=== PATIENT | male | born 1980 | race Caucasian/White ===

== ENCOUNTER 2019-10-03 03:15 | Emergency (ER) | payer OTHER ==
[~2019-10-03] VITALS: Ht 193 cm; Wt 181.4 kg
[2019-10-03] MEDS ORDERED: ALBU90OI INH (05:38)
[2019-10-03] MEDS ORDERED: Prednisone20 MG PO (05:38)
[2019-10-03] MEDS ORDERED: Zithromax250 MG PO (05:38)
== END 2019-10-03 06:09 | disposition home or self-care (01) ==
LOC: ER 03:15
DX: J18.9 Pneumonia, unspecified organism (principal); J98.01 Acute bronchospasm; F17.210 Nicotine dependence, cigarettes, uncomplicated
CPT/HCPCS: 71046; 94640; 99283-25; J7512

== ENCOUNTER → 2019-11-15 | Outpatient (CLI) | payer OTHER ==
[~2019-11-15] MED LIST: ALBU90OI INH; Prednisone20 MG PO; Zithromax250 MG PO
[2019-11-15 14:10] LABS: BASOPHILS ABSOLUTE AUTO 0.06 K/mm3 (0.00-0.23); BASOPHILS PERCENT AUTO 1 % (0-2); EOSINOPHILS ABSOLUTE AUTO 0.43 K/mm3 (0.00-0.68); EOSINOPHILS PERCENT AUTO 5 % (0-6); Hemoglobin 15.1 g/dL (13.5-17.5); IMMATURE GRAN ABSOLUTE AUTO 0.04 K/mm3 (0.00-0.10); IMMATURE GRAN PERCENT AUTO 0 % (0-1); LYMPHOCYTES ABSOLUTE AUTO 2.53 K/mm3 (0.84-5.20); LYMPHOCYTES PERCENT AUTO 26 % (21-46); MONOCYTES ABSOLUTE AUTO 0.65 K/mm3 (0.16-1.47); MONOCYTES PERCENT AUTO 7 % (4-13); Mean Corpuscular HGB 31.8 pg (26.0-34.0); Mean Corpuscular HGB Conc 34.3 g/dL (31.5-36.5); Mean Corpuscular Volume 93 fL (80-100); Mean Platelet Volume 8.8 fL (9.1-12.4); NEUTROPHILS ABSOLUTE AUTO 5.87 K/mm3 (1.96-9.15); NEUTROPHILS PERCENT AUTO 61 % (41-73); Platelet Count 462 K/mm3 (150-400); RDW Standard Deviation 40.9 fL (35.1-46.3); Red Blood Cell Count 4.75 M/mm3 (4.30-5.90); White Blood Cell Count 9.58 K/mm3 (4.00-11.30)
[2019-11-15 14:33] LABS: Alanine Aminotransfer (ALT/SGP 34 U/L (12-78); Albumin, Blood 3.5 g/dL (3.4-5.0); Albumin/Globulin Ratio 0.8 (0.8-1.8); Alk Phos 115 U/L (40-126); Anion Gap 8 mmol/L (6-16); Aspartate Aminotrans (AST/SGOT 18 U/L (12-37); Bilirubin, Total 0.4 mg/dL (0.1-1.0); Blood Urea Nitrogen 6 mg/dL (8-24); Bun/Creatinine Ratio 9.4 (12.0-20.0); CO2, Blood 28 mmol/L (21-32); Calcium, Blood 9.1 mg/dL (8.5-10.1); Chloride, Blood 100 mmol/L (98-108); Creatinine, Blood 0.64 mg/dL (0.60-1.20); Globulin, Blood 4.4 g/dL (2.2-4.0); Glomerular Filtration Rate >60 (60-); Glucose, Blood 87 mg/dL (70-99); Sodium, Blood 136 mmol/L (136-145); Thyroid Stimulating Hormone 4.673 uIU/mL (0.360-4.800); Total Protein, Blood 7.9 g/dL (6.4-8.2)
== END | disposition home or self-care (01) ==
LOC: LAB SHORT 14:05 → LAB EV 14:05
PROVIDERS: Physician Assistant Medical
DX: E66.01 Morbid (severe) obesity due to excess calories (principal); R53.83 Other fatigue; R60.0 Localized edema
CPT/HCPCS: 80053; 83036; 84443; 85025

== ENCOUNTER → 2020-05-28 | Outpatient (CLI) | payer OTHER ==
[2020-05-28 13:30] LABS: BASOPHILS ABSOLUTE AUTO 0.07 K/mm3 (0.00-0.23); BASOPHILS PERCENT AUTO 1 % (0-2); EOSINOPHILS ABSOLUTE AUTO 0.41 K/mm3 (0.00-0.68); EOSINOPHILS PERCENT AUTO 5 % (0-6); Hematocrit 44.3 % (37.0-53.0); Hemoglobin 15.5 g/dL (13.5-17.5); IMMATURE GRAN ABSOLUTE AUTO 0.03 K/mm3 (0.00-0.10); IMMATURE GRAN PERCENT AUTO 0 % (0-1); LYMPHOCYTES PERCENT AUTO 25 % (21-46); MONOCYTES ABSOLUTE AUTO 0.73 K/mm3 (0.16-1.47); MONOCYTES PERCENT AUTO 9 % (4-13); Mean Corpuscular HGB 32.8 pg (26.0-34.0); Mean Corpuscular Volume 94 fL (80-100); Mean Platelet Volume 8.7 fL (9.1-12.4); NEUTROPHILS ABSOLUTE AUTO 5.14 K/mm3 (1.96-9.15); NEUTROPHILS PERCENT AUTO 61 % (41-73); Platelet Count 356 K/mm3 (150-400); RDW Standard Deviation 41.8 fL (35.1-46.3); Red Blood Cell Count 4.72 M/mm3 (4.30-5.90); White Blood Cell Count 8.48 K/mm3 (4.00-11.30)
[2020-05-28 13:41] LABS: Alanine Aminotransfer (ALT/SGP 62 U/L (12-78); Albumin, Blood 3.8 g/dL (3.4-5.0); Albumin/Globulin Ratio 0.9 (0.8-1.8); Alk Phos 106 U/L (40-126); Anion Gap 6 mmol/L (6-16); Aspartate Aminotrans (AST/SGOT 34 U/L (12-37); Bilirubin, Total 0.5 mg/dL (0.1-1.0); Blood Urea Nitrogen 11 mg/dL (8-24); Bun/Creatinine Ratio 16.2 (12.0-20.0); CO2, Blood 29 mmol/L (21-32); Calcium, Blood 9.4 mg/dL (8.5-10.1); Chloride, Blood 100 mmol/L (98-108); Creatinine, Blood 0.68 mg/dL (0.60-1.20); Globulin, Blood 4.4 g/dL (2.2-4.0); Glomerular Filtration Rate >60 (60-); Glucose, Blood 101 mg/dL (70-99); Potassium, Blood 3.9 mmol/L (3.5-5.5); Sodium, Blood 135 mmol/L (136-145); Total Protein, Blood 8.2 g/dL (6.4-8.2)
== END ==
LOC: LAB SHORT 13:25 → LAB EV 13:25
PROVIDERS: Emergency Medicine
DX: S81.802A Unspecified open wound, left lower leg, initial encounter (principal)
CPT/HCPCS: 80053; 85025; 87070; 87075; 87077; 87147; 87186; 87205

== ENCOUNTER 2020-09-10 00:13 | Day surgery (SDC) | payer OTHER | END 2020-09-10 22:51 | disposition home or self-care (01) | LOC: WOUND 00:13 | DX: I87.312 Chronic venous hypertension (idiopathic) with ulcer of left lower extremity (principal); L97.822 Non-pressure chronic ulcer of other part of left lower leg with fat layer exposed; I96 Gangrene, not elsewhere classified; I87.2 Venous insufficiency (chronic) (peripheral); G62.1 Alcoholic polyneuropathy; F17.210 Nicotine dependence, cigarettes, uncomplicated; E66.01 Morbid (severe) obesity due to excess calories; Z68.42 Body mass index [BMI] 45.0-49.9, adult; Z79.899 Other long term (current) drug therapy | CPT/HCPCS: G0463 ==

== ENCOUNTER 2020-09-13 00:27 | Day surgery (SDC) | payer OTHER | END 2020-09-13 23:05 | disposition home or self-care (01) | LOC: WOUND 00:27 | DX: I87.312 Chronic venous hypertension (idiopathic) with ulcer of left lower extremity (principal); L97.822 Non-pressure chronic ulcer of other part of left lower leg with fat layer exposed; I96 Gangrene, not elsewhere classified; G62.9 Polyneuropathy, unspecified; Z79.899 Other long term (current) drug therapy ==

== ENCOUNTER 2020-09-17 00:18 | Day surgery (SDC) | payer OTHER | END 2020-09-17 23:46 | disposition home or self-care (01) | LOC: WOUND 00:18 | DX: I87.2 Venous insufficiency (chronic) (peripheral) (principal); I87.312 Chronic venous hypertension (idiopathic) with ulcer of left lower extremity; I73.9 Peripheral vascular disease, unspecified; L97.821 Non-pressure chronic ulcer of other part of left lower leg limited to breakdown of skin; Z79.899 Other long term (current) drug therapy ==

== ENCOUNTER 2020-09-24 00:21 | Day surgery (SDC) | payer OTHER | END 2020-09-24 23:04 | disposition home or self-care (01) | LOC: WOUND 00:21 | DX: I96 Gangrene, not elsewhere classified (principal); L97.822 Non-pressure chronic ulcer of other part of left lower leg with fat layer exposed; I87.312 Chronic venous hypertension (idiopathic) with ulcer of left lower extremity; I87.2 Venous insufficiency (chronic) (peripheral); G62.9 Polyneuropathy, unspecified; Z79.899 Other long term (current) drug therapy ==

== ENCOUNTER 2020-10-01 00:40 | Day surgery (SDC) | payer OTHER | END 2020-10-01 22:52 | disposition home or self-care (01) | LOC: WOUND 00:40 | DX: I87.312 Chronic venous hypertension (idiopathic) with ulcer of left lower extremity (principal); L97.821 Non-pressure chronic ulcer of other part of left lower leg limited to breakdown of skin; L97.822 Non-pressure chronic ulcer of other part of left lower leg with fat layer exposed; I87.2 Venous insufficiency (chronic) (peripheral); I73.9 Peripheral vascular disease, unspecified ==

== ENCOUNTER 2020-10-08 00:33 | Day surgery (SDC) | payer OTHER | END 2020-10-08 23:12 | disposition home or self-care (01) | LOC: WOUND 00:33 | DX: I96 Gangrene, not elsewhere classified (principal); L97.822 Non-pressure chronic ulcer of other part of left lower leg with fat layer exposed; I87.2 Venous insufficiency (chronic) (peripheral); G62.9 Polyneuropathy, unspecified; Z79.899 Other long term (current) drug therapy | CPT/HCPCS: A9270 ==

== ENCOUNTER 2020-10-10 00:28 | Day surgery (SDC) | payer OTHER | END 2020-10-10 22:48 | disposition home or self-care (01) | LOC: WOUND 00:28 | DX: L97.821 Non-pressure chronic ulcer of other part of left lower leg limited to breakdown of skin (principal); R60.9 Edema, unspecified; I87.2 Venous insufficiency (chronic) (peripheral) ==

== ENCOUNTER 2020-10-15 00:21 | Day surgery (SDC) | payer OTHER | END 2020-10-15 22:43 | disposition home or self-care (01) | LOC: WOUND 00:21 | DX: L97.821 Non-pressure chronic ulcer of other part of left lower leg limited to breakdown of skin (principal); I87.2 Venous insufficiency (chronic) (peripheral); G62.9 Polyneuropathy, unspecified; I73.9 Peripheral vascular disease, unspecified; Z79.899 Other long term (current) drug therapy | CPT/HCPCS: A9270; G0463 ==

== ENCOUNTER 2021-12-02 09:04 | Emergency (ER) | payer SELFPAY ==
[~2021-12-02] VITALS: Ht 193 cm; Wt 192.8 kg
[2021-12-02 09:54] LABS: BASOPHILS ABSOLUTE AUTO 0.06 K/mm3 (0.00-0.23); BASOPHILS PERCENT AUTO 1 % (0-2); EOSINOPHILS ABSOLUTE AUTO 0.38 K/mm3 (0.00-0.68); EOSINOPHILS PERCENT AUTO 5 % (0-6); Hematocrit 44.6 % (37.0-53.0); Hemoglobin 14.8 g/dL (13.5-17.5); IMMATURE GRAN ABSOLUTE AUTO 0.05 K/mm3 (0.00-0.10); IMMATURE GRAN PERCENT AUTO 1 % (0-1); LYMPHOCYTES ABSOLUTE AUTO 1.93 K/mm3 (0.84-5.20); LYMPHOCYTES PERCENT AUTO 25 % (21-46); MONOCYTES ABSOLUTE AUTO 0.69 K/mm3 (0.16-1.47); MONOCYTES PERCENT AUTO 9 % (4-13); Mean Corpuscular HGB 31.6 pg (26.0-34.0); Mean Corpuscular HGB Conc 33.2 g/dL (31.5-36.5); Mean Corpuscular Volume 95 fL (80-100); Mean Platelet Volume 8.8 fL (9.1-12.4); NEUTROPHILS ABSOLUTE AUTO 4.76 K/mm3 (1.96-9.15); NEUTROPHILS PERCENT AUTO 61 % (41-73); Platelet Count 373 K/mm3 (150-400); RDW Coefficient Variation 12.7 % (11.7-14.2); RDW Standard Deviation 43.8 fL (35.1-46.3); Red Blood Cell Count 4.69 M/mm3 (4.30-5.90); White Blood Cell Count 7.87 K/mm3 (4.00-11.30)
[2021-12-02 10:14] LABS: Alanine Aminotransfer (ALT/SGP 66 U/L (12-78); Albumin, Blood 3.2 g/dL (3.4-5.0); Albumin/Globulin Ratio 0.6 (0.8-1.8); Alk Phos 135 U/L (50-136); Anion Gap 7 mmol/L (6-16); Aspartate Aminotrans (AST/SGOT 37 U/L (12-37); Bilirubin, Total 0.6 mg/dL (0.1-1.0); Blood Urea Nitrogen 6 mg/dL (8-24); Bun/Creatinine Ratio 12.2 (12.0-20.0); CO2, Blood 29 mmol/L (21-32); Calcium, Blood 9.3 mg/dL (8.5-10.1); Chloride, Blood 98 mmol/L (98-108); Creatinine, Blood 0.49 mg/dL (0.60-1.20); Globulin, Blood 5.3 g/dL (2.2-4.0); Glomerular Filtration Rate >60 (60-); Glucose, Blood 101 mg/dL (70-99); Potassium, Blood 4.2 mmol/L (3.5-5.5); Sodium, Blood 134 mmol/L (136-145); Total Protein, Blood 8.5 g/dL (6.4-8.2)
[2021-12-02] MEDS ORDERED: Prinivil10 MG PO (11:36)
== END 2021-12-02 14:04 | disposition home or self-care (01) ==
LOC: ER 09:04
PROVIDERS: Family Medicine
DX: L97.429 Non-pressure chronic ulcer of left heel and midfoot with unspecified severity (principal); I10 Essential (primary) hypertension; Z79.899 Other long term (current) drug therapy; F17.210 Nicotine dependence, cigarettes, uncomplicated
CPT/HCPCS: 36415; 73620; 80053; 83036; 85025; 93926; A9270

== ENCOUNTER 2021-12-30 00:48 | Day surgery (SDC) | payer OTHER ==
[~2021-12-30 00:48] MED LIST changes: +Prinivil10 MG PO
== END 2021-12-30 23:55 | disposition home or self-care (01) ==
LOC: WOUND 00:48
DX: S81.802A Unspecified open wound, left lower leg, initial encounter (principal); S91.302A Unspecified open wound, left foot, initial encounter; R60.9 Edema, unspecified; E66.01 Morbid (severe) obesity due to excess calories; F17.200 Nicotine dependence, unspecified, uncomplicated; I73.9 Peripheral vascular disease, unspecified; I87.2 Venous insufficiency (chronic) (peripheral); F10.10 Alcohol abuse, uncomplicated
CPT/HCPCS: G0463

== ENCOUNTER 2022-01-06 08:00 | Day surgery (SDC) | payer OTHER ==
[2022-02-17] MEDS ORDERED: ALBU90OI INH (11:13)
[2022-02-17] MEDS ORDERED: ASPI81CH PO (11:13)
[2022-02-17] MEDS ORDERED: SULTRIDS PO (11:14)
[2022-02-17] MEDS ORDERED: Crestor40 MG PO (11:14)
== END 2022-01-06 23:59 | disposition home or self-care (01) ==
LOC: WOUND 08:00
DX: L97.522 Non-pressure chronic ulcer of other part of left foot with fat layer exposed (principal); I73.9 Peripheral vascular disease, unspecified; I87.2 Venous insufficiency (chronic) (peripheral); F10.10 Alcohol abuse, uncomplicated; E66.01 Morbid (severe) obesity due to excess calories; R60.9 Edema, unspecified; F17.200 Nicotine dependence, unspecified, uncomplicated; Z68.43 Body mass index [BMI] 50.0-59.9, adult
CPT/HCPCS: G0463

== ENCOUNTER 2022-01-13 02:00 | Day surgery (SDC) | payer OTHER | END 2022-01-13 22:52 | disposition home or self-care (01) | LOC: WOUND 02:00 | DX: L97.522 Non-pressure chronic ulcer of other part of left foot with fat layer exposed (principal); I73.9 Peripheral vascular disease, unspecified; I87.2 Venous insufficiency (chronic) (peripheral); F17.210 Nicotine dependence, cigarettes, uncomplicated; E66.01 Morbid (severe) obesity due to excess calories; Z68.43 Body mass index [BMI] 50.0-59.9, adult; F10.10 Alcohol abuse, uncomplicated | CPT/HCPCS: A9270; G0463 ==

== ENCOUNTER 2022-01-27 01:34 | Day surgery (SDC) | payer OTHER | END 2022-01-27 22:57 | disposition home or self-care (01) | LOC: WOUND 01:34 | DX: L97.522 Non-pressure chronic ulcer of other part of left foot with fat layer exposed (principal); I73.9 Peripheral vascular disease, unspecified; R60.9 Edema, unspecified; I87.2 Venous insufficiency (chronic) (peripheral); F17.210 Nicotine dependence, cigarettes, uncomplicated; E66.01 Morbid (severe) obesity due to excess calories; Z68.43 Body mass index [BMI] 50.0-59.9, adult; F10.10 Alcohol abuse, uncomplicated | CPT/HCPCS: 99406; A9270; G0463 ==

== ENCOUNTER 2022-02-10 01:26 | Day surgery (SDC) | payer OTHER | END 2022-02-10 22:47 | disposition home or self-care (01) | LOC: WOUND 01:26 | DX: L97.522 Non-pressure chronic ulcer of other part of left foot with fat layer exposed (principal); L89.899 Pressure ulcer of other site, unspecified stage; R60.9 Edema, unspecified; E66.01 Morbid (severe) obesity due to excess calories; I87.2 Venous insufficiency (chronic) (peripheral); F17.200 Nicotine dependence, unspecified, uncomplicated; F10.10 Alcohol abuse, uncomplicated; Z68.43 Body mass index [BMI] 50.0-59.9, adult | CPT/HCPCS: 99406; A9270; G0463 ==

== ENCOUNTER → 2022-03-05 | Day surgery (SDC) | payer OTHER ==
[~2022-03-05] MED LIST changes: +ASPI81CH PO; +Crestor40 MG PO; +SULTRIDS PO
== END ==
LOC: WOUND 01:46
DX: L97.522 Non-pressure chronic ulcer of other part of left foot with fat layer exposed (principal); E66.01 Morbid (severe) obesity due to excess calories; Z68.43 Body mass index [BMI] 50.0-59.9, adult; R60.9 Edema, unspecified; F17.200 Nicotine dependence, unspecified, uncomplicated; I87.2 Venous insufficiency (chronic) (peripheral); F10.10 Alcohol abuse, uncomplicated
CPT/HCPCS: A9270; G0463

== ENCOUNTER 2022-03-12 04:36 | Day surgery (SDC) | payer OTHER | END 2022-03-12 23:17 | disposition home or self-care (01) | LOC: WOUND 04:36 | DX: L97.522 Non-pressure chronic ulcer of other part of left foot with fat layer exposed (principal); L89.899 Pressure ulcer of other site, unspecified stage; I87.2 Venous insufficiency (chronic) (peripheral); R60.9 Edema, unspecified; E66.01 Morbid (severe) obesity due to excess calories; Z68.43 Body mass index [BMI] 50.0-59.9, adult | CPT/HCPCS: 99406; A9270; G0463 ==

== ENCOUNTER 2022-03-19 01:16 | Day surgery (SDC) | payer OTHER | END 2022-03-19 22:49 | disposition home or self-care (01) | LOC: WOUND 01:16 | DX: L97.522 Non-pressure chronic ulcer of other part of left foot with fat layer exposed (principal); L97.812 Non-pressure chronic ulcer of other part of right lower leg with fat layer exposed; S81.802A Unspecified open wound, left lower leg, initial encounter; X58.XXXD Exposure to other specified factors, subsequent encounter; E66.01 Morbid (severe) obesity due to excess calories; R60.9 Edema, unspecified; F17.200 Nicotine dependence, unspecified, uncomplicated; I73.9 Peripheral vascular disease, unspecified; I87.2 Venous insufficiency (chronic) (peripheral); F10.10 Alcohol abuse, uncomplicated | CPT/HCPCS: 99406; A9270 ==

== ENCOUNTER 2022-03-21 01:51 | Day surgery (SDC) | payer OTHER | END 2022-03-21 23:04 | disposition home or self-care (01) | LOC: WOUND 01:51 | DX: S81.802A Unspecified open wound, left lower leg, initial encounter (principal); R60.9 Edema, unspecified; E66.01 Morbid (severe) obesity due to excess calories; F17.200 Nicotine dependence, unspecified, uncomplicated; I87.2 Venous insufficiency (chronic) (peripheral); F10.10 Alcohol abuse, uncomplicated | CPT/HCPCS: 99406 ==

== ENCOUNTER 2022-03-25 04:41 | Day surgery (SDC) | payer OTHER | END 2022-03-25 22:58 | disposition home or self-care (01) | LOC: WOUND 04:41 | DX: L97.812 Non-pressure chronic ulcer of other part of right lower leg with fat layer exposed (principal); L97.525 Non-pressure chronic ulcer of other part of left foot with muscle involvement without evidence of necrosis; R60.9 Edema, unspecified; E66.01 Morbid (severe) obesity due to excess calories; F17.200 Nicotine dependence, unspecified, uncomplicated; I87.2 Venous insufficiency (chronic) (peripheral); F10.10 Alcohol abuse, uncomplicated; Z68.43 Body mass index [BMI] 50.0-59.9, adult | CPT/HCPCS: 99406; A9270 ==

== ENCOUNTER 2022-04-01 01:18 | Day surgery (SDC) | payer OTHER | END 2022-04-01 23:00 | disposition home or self-care (01) | LOC: WOUND 01:18 | DX: L97.812 Non-pressure chronic ulcer of other part of right lower leg with fat layer exposed (principal); L97.525 Non-pressure chronic ulcer of other part of left foot with muscle involvement without evidence of necrosis; L97.522 Non-pressure chronic ulcer of other part of left foot with fat layer exposed; I73.9 Peripheral vascular disease, unspecified; I87.2 Venous insufficiency (chronic) (peripheral); F10.10 Alcohol abuse, uncomplicated; F17.200 Nicotine dependence, unspecified, uncomplicated; E66.01 Morbid (severe) obesity due to excess calories; Z68.43 Body mass index [BMI] 50.0-59.9, adult | CPT/HCPCS: 99406; A9270 ==

== ENCOUNTER 2022-04-04 01:03 | Day surgery (SDC) | payer OTHER | END 2022-04-04 23:13 | disposition home or self-care (01) | LOC: WOUND 01:03 | DX: S91.302A Unspecified open wound, left foot, initial encounter (principal); S81.802D Unspecified open wound, left lower leg, subsequent encounter; R60.9 Edema, unspecified; E66.01 Morbid (severe) obesity due to excess calories; F17.200 Nicotine dependence, unspecified, uncomplicated; F10.10 Alcohol abuse, uncomplicated; I87.2 Venous insufficiency (chronic) (peripheral) | CPT/HCPCS: 99406 ==

== ENCOUNTER 2022-04-08 05:04 | Day surgery (SDC) | payer OTHER | END 2022-04-08 23:56 | disposition home or self-care (01) | LOC: WOUND 05:04 | DX: I87.311 Chronic venous hypertension (idiopathic) with ulcer of right lower extremity (principal); L97.812 Non-pressure chronic ulcer of other part of right lower leg with fat layer exposed; L89.624 Pressure ulcer of left heel, stage 4; L97.522 Non-pressure chronic ulcer of other part of left foot with fat layer exposed; R60.9 Edema, unspecified; E66.01 Morbid (severe) obesity due to excess calories; F17.200 Nicotine dependence, unspecified, uncomplicated; I87.2 Venous insufficiency (chronic) (peripheral); F10.10 Alcohol abuse, uncomplicated; Z68.43 Body mass index [BMI] 50.0-59.9, adult | CPT/HCPCS: 87070; 87075; 87077; 87147; 87186; 87205; A9270; G0463 ==

== ENCOUNTER 2022-04-09 14:35 | Day surgery (SDC) | payer OTHER | END 2022-04-09 23:50 | LOC: WOUND 14:35 | DX: L89.624 Pressure ulcer of left heel, stage 4 (principal); L97.522 Non-pressure chronic ulcer of other part of left foot with fat layer exposed; I87.311 Chronic venous hypertension (idiopathic) with ulcer of right lower extremity; R60.9 Edema, unspecified; E66.01 Morbid (severe) obesity due to excess calories; F17.200 Nicotine dependence, unspecified, uncomplicated; I73.9 Peripheral vascular disease, unspecified; I87.2 Venous insufficiency (chronic) (peripheral); F10.10 Alcohol abuse, uncomplicated | CPT/HCPCS: 99406 ==

== ENCOUNTER 2022-04-15 03:19 | Day surgery (SDC) | payer OTHER | END 2022-04-18 23:37 | disposition home or self-care (01) | LOC: WOUND 03:19 | DX: I87.311 Chronic venous hypertension (idiopathic) with ulcer of right lower extremity (principal); L97.812 Non-pressure chronic ulcer of other part of right lower leg with fat layer exposed; L97.525 Non-pressure chronic ulcer of other part of left foot with muscle involvement without evidence of necrosis; E66.01 Morbid (severe) obesity due to excess calories; F17.200 Nicotine dependence, unspecified, uncomplicated; I73.9 Peripheral vascular disease, unspecified; I87.2 Venous insufficiency (chronic) (peripheral); F10.10 Alcohol abuse, uncomplicated; B95.61 Methicillin susceptible Staphylococcus aureus infection as the cause of diseases classified elsewhere; B95.4 Other streptococcus as the cause of diseases classified elsewhere; Z68.43 Body mass index [BMI] 50.0-59.9, adult | CPT/HCPCS: 99406; A9270 ==

== ENCOUNTER 2022-04-22 02:49 | Day surgery (SDC) | payer OTHER | END 2022-04-22 22:50 | disposition home or self-care (01) | LOC: WOUND 02:49 | DX: L89.624 Pressure ulcer of left heel, stage 4 (principal); L97.522 Non-pressure chronic ulcer of other part of left foot with fat layer exposed; I87.311 Chronic venous hypertension (idiopathic) with ulcer of right lower extremity; R60.9 Edema, unspecified; E66.01 Morbid (severe) obesity due to excess calories; F17.200 Nicotine dependence, unspecified, uncomplicated; I73.9 Peripheral vascular disease, unspecified; I87.2 Venous insufficiency (chronic) (peripheral); F10.10 Alcohol abuse, uncomplicated | CPT/HCPCS: 99406 ==

== ENCOUNTER 2022-04-29 01:13 | Day surgery (SDC) | payer OTHER | END 2022-04-30 00:06 | disposition home or self-care (01) | LOC: WOUND 01:13 | DX: L97.522 Non-pressure chronic ulcer of other part of left foot with fat layer exposed (principal); L89.624 Pressure ulcer of left heel, stage 4; I87.311 Chronic venous hypertension (idiopathic) with ulcer of right lower extremity; E66.01 Morbid (severe) obesity due to excess calories; F17.200 Nicotine dependence, unspecified, uncomplicated; I87.2 Venous insufficiency (chronic) (peripheral); F10.10 Alcohol abuse, uncomplicated; Z68.43 Body mass index [BMI] 50.0-59.9, adult | CPT/HCPCS: A9270; G0463 ==

== ENCOUNTER 2022-05-06 01:03 | Day surgery (SDC) | payer OTHER | END 2022-05-06 12:59 | disposition home or self-care (01) | LOC: WOUND 01:03 | DX: L89.624 Pressure ulcer of left heel, stage 4 (principal); L97.525 Non-pressure chronic ulcer of other part of left foot with muscle involvement without evidence of necrosis; I87.311 Chronic venous hypertension (idiopathic) with ulcer of right lower extremity; R60.9 Edema, unspecified; E66.01 Morbid (severe) obesity due to excess calories; F17.200 Nicotine dependence, unspecified, uncomplicated; I73.9 Peripheral vascular disease, unspecified; I87.2 Venous insufficiency (chronic) (peripheral); F10.10 Alcohol abuse, uncomplicated | CPT/HCPCS: A9270; G0463 ==

== ENCOUNTER 2022-05-20 04:17 | Day surgery (SDC) | payer OTHER | END 2022-05-20 23:26 | disposition home or self-care (01) | LOC: WOUND 04:17 | PROC: 0H5NXZZ Destruction of Left Foot Skin, External Approach (ICD-10-PCS; principal; 2022-05-20) | DX: I70.25 Atherosclerosis of native arteries of other extremities with ulceration (principal); L98.492 Non-pressure chronic ulcer of skin of other sites with fat layer exposed; I87.311 Chronic venous hypertension (idiopathic) with ulcer of right lower extremity; L89.624 Pressure ulcer of left heel, stage 4; E66.01 Morbid (severe) obesity due to excess calories; F17.200 Nicotine dependence, unspecified, uncomplicated; I87.2 Venous insufficiency (chronic) (peripheral); F10.10 Alcohol abuse, uncomplicated; Z68.43 Body mass index [BMI] 50.0-59.9, adult; Y90.9 Presence of alcohol in blood, level not specified | CPT/HCPCS: A9270 ==

== ENCOUNTER 2022-06-03 01:52 | Day surgery (SDC) | payer OTHER | END 2022-06-03 23:55 | disposition home or self-care (01) | LOC: WOUND 01:52 | DX: I87.311 Chronic venous hypertension (idiopathic) with ulcer of right lower extremity (principal); L97.425 Non-pressure chronic ulcer of left heel and midfoot with muscle involvement without evidence of necrosis; L97.522 Non-pressure chronic ulcer of other part of left foot with fat layer exposed; L89.624 Pressure ulcer of left heel, stage 4; R60.9 Edema, unspecified; E66.01 Morbid (severe) obesity due to excess calories; F17.200 Nicotine dependence, unspecified, uncomplicated; I73.9 Peripheral vascular disease, unspecified; I87.2 Venous insufficiency (chronic) (peripheral); F10.10 Alcohol abuse, uncomplicated | CPT/HCPCS: A9270 ==

== ENCOUNTER 2022-07-01 02:30 | Day surgery (SDC) | payer OTHER | END 2022-07-01 22:53 | disposition home or self-care (01) | LOC: WOUND 02:30 | DX: Z09 Encounter for follow-up examination after completed treatment for conditions other than malignant neoplasm (principal); E66.01 Morbid (severe) obesity due to excess calories; F10.10 Alcohol abuse, uncomplicated; F17.200 Nicotine dependence, unspecified, uncomplicated | CPT/HCPCS: G0463 ==

== ENCOUNTER 2022-09-03 05:57 | Day surgery (SDC) | payer OTHER | END 2022-09-03 23:06 | disposition home or self-care (01) | LOC: WOUND 05:57 | DX: L08.9 Local infection of the skin and subcutaneous tissue, unspecified (principal); E66.01 Morbid (severe) obesity due to excess calories; F17.200 Nicotine dependence, unspecified, uncomplicated; I73.9 Peripheral vascular disease, unspecified; I87.2 Venous insufficiency (chronic) (peripheral); F10.10 Alcohol abuse, uncomplicated; L97.222 Non-pressure chronic ulcer of left calf with fat layer exposed; L97.812 Non-pressure chronic ulcer of other part of right lower leg with fat layer exposed | CPT/HCPCS: 99406; G0463 ==

== ENCOUNTER 2022-09-10 02:00 | Day surgery (SDC) | payer OTHER | END 2022-09-10 22:56 | disposition home or self-care (01) | LOC: WOUND 02:00 | DX: L03.116 Cellulitis of left lower limb (principal); E66.01 Morbid (severe) obesity due to excess calories; F17.200 Nicotine dependence, unspecified, uncomplicated; I73.9 Peripheral vascular disease, unspecified; I87.2 Venous insufficiency (chronic) (peripheral); F10.10 Alcohol abuse, uncomplicated; L97.522 Non-pressure chronic ulcer of other part of left foot with fat layer exposed | CPT/HCPCS: 99406; G0463 ==

== ENCOUNTER 2022-09-17 01:13 | Day surgery (SDC) | payer OTHER | END 2022-09-18 00:02 | disposition home or self-care (01) | LOC: WOUND 01:13 | DX: L03.116 Cellulitis of left lower limb (principal); L97.522 Non-pressure chronic ulcer of other part of left foot with fat layer exposed; E66.01 Morbid (severe) obesity due to excess calories; I73.9 Peripheral vascular disease, unspecified; I87.2 Venous insufficiency (chronic) (peripheral); F10.10 Alcohol abuse, uncomplicated | CPT/HCPCS: G0463 ==

== ENCOUNTER 2022-11-05 17:48 | Inpatient (IN) | payer OTHER ==
[~2022-11-05] VITALS: Ht 193 cm; Wt 204.8 kg
[~2022-11-05 17:48] MED LIST changes: +ANUSOL-HC30 G1 PR; +FURO40 PO; +Prinivil10 MG
[2022-11-05 18:34] LABS: BASOPHILS ABSOLUTE AUTO 0.05 K/mm3 (0.00-0.23); BASOPHILS PERCENT AUTO 0 % (0-2); EOSINOPHILS ABSOLUTE AUTO 0.59 K/mm3 (0.00-0.68); EOSINOPHILS PERCENT AUTO 3 % (0-6); Hematocrit 38.5 % (37.0-53.0); Hemoglobin 13.4 g/dL (13.5-17.5); IMMATURE GRAN ABSOLUTE AUTO 0.12 K/mm3 (0.00-0.10); IMMATURE GRAN PERCENT AUTO 1 % (0-1); LYMPHOCYTES ABSOLUTE AUTO 0.51 K/mm3 (0.84-5.20); LYMPHOCYTES PERCENT AUTO 3 % (21-46); MONOCYTES ABSOLUTE AUTO 0.39 K/mm3 (0.16-1.47); MONOCYTES PERCENT AUTO 2 % (4-13); Mean Corpuscular HGB Conc 34.8 g/dL (31.5-36.5); Mean Corpuscular Volume 89 fL (80-100); Mean Platelet Volume 9.1 fL (9.1-12.4); NEUTROPHILS PERCENT AUTO 90 % (41-73); Platelet Count 341 K/mm3 (150-400); RDW Coefficient Variation 13.2 % (11.7-14.2); RDW Standard Deviation 43.7 fL (35.1-46.3); Red Blood Cell Count 4.32 M/mm3 (4.30-5.90); White Blood Cell Count 17.16 K/mm3 (4.00-11.30)
[2022-11-05 18:50] LABS: Albumin, Blood 2.7 g/dL (3.4-5.0); Albumin/Globulin Ratio 0.6 (0.8-1.8); Bilirubin, Total 6.1 mg/dL (0.1-1.0); Bun/Creatinine Ratio 12.7 (12.0-20.0); Calcium, Blood 8.6 mg/dL (8.5-10.1); Creatinine, Blood 1.42 mg/dL (0.60-1.20); Globulin, Blood 4.3 g/dL (2.2-4.0)
[2022-11-05 21:14] LABS: Bilirubin, Direct 3.7 mg/dL (0.0-0.3); Bilirubin, Indirect 1.8 mg/dL (0.1-0.7); Bilirubin, Total 5.5 mg/dL (0.1-1.0)
[2022-11-05 22:21] LABS: Magnesium, Blood 1.9 mg/dL (1.6-2.4)
[2022-11-05 23:22] LABS: Thyroid Stimulating Hormone 4.45 uIU/mL (0.360-4.800)
[2022-11-05 23:59] LABS: Influenza A, PCR NEGATIVE (NEGATIVE); Influenza B, PCR NEGATIVE (NEGATIVE); Resp Syncytial Virus, PCR NEGATIVE (NEGATIVE); SARS-Cov-2 (COVID-19) PCR, MMC NEGATIVE (NEGATIVE)
--- NOTE | 2022-11-06 00:27 | NUR ---
PT ARRIVED TO UNIT FROM ED AT 2335 VIA [facility]. SELF-TRANSFERRED TO BED. RIGHT FIFTH TOE NOTED TO BE WEEPING SEROSANGUINOUS FLUID FROM BEND OF TOE. DENIED C/O PAIN. PT HAS NEUROPATHY AND IS UNABLE TO FEEL TOES. TELE ORDERED AND WILL BE APPLIED UPON RECEIPT FROM MEDICAL OFFICE REPRESENTATIVE. METRONIDAZOLE STARTED AT 0000. PROVIDED WITH ICE CHIPS. CONSULT FOR GI ORDERED.
[2022-11-06 00:59] LABS: Hematocrit 36.6 % (37.0-53.0); Hemoglobin 12.6 g/dL (13.5-17.5)
[2022-11-06 03:15] LABS: BASOPHILS ABSOLUTE AUTO 0.04 K/mm3 (0.00-0.23); BASOPHILS PERCENT AUTO 0 % (0-2); EOSINOPHILS PERCENT AUTO 6 % (0-6); Hematocrit 36.6 % (37.0-53.0); Hemoglobin 12.7 g/dL (13.5-17.5); IMMATURE GRAN ABSOLUTE AUTO 0.08 K/mm3 (0.00-0.10); IMMATURE GRAN PERCENT AUTO 1 % (0-1); LYMPHOCYTES ABSOLUTE AUTO 0.57 K/mm3 (0.84-5.20); LYMPHOCYTES PERCENT AUTO 4 % (21-46); MONOCYTES PERCENT AUTO 3 % (4-13); Mean Corpuscular HGB 30.6 pg (26.0-34.0); Mean Corpuscular HGB Conc 34.7 g/dL (31.5-36.5); Mean Corpuscular Volume 88 fL (80-100); NEUTROPHILS PERCENT AUTO 87 % (41-73); Platelet Count 311 K/mm3 (150-400); RDW Coefficient Variation 13.3 % (11.7-14.2); RDW Standard Deviation 43.5 fL (35.1-46.3); Red Blood Cell Count 4.15 M/mm3 (4.30-5.90); White Blood Cell Count 15.59 K/mm3 (4.00-11.30)
[2022-11-06 03:49] LABS: Albumin, Blood 2.4 g/dL (3.4-5.0); Albumin/Globulin Ratio 0.5 (0.8-1.8); Bilirubin, Total 4.6 mg/dL (0.1-1.0); Calcium, Blood 8.5 mg/dL (8.5-10.1); Creatinine, Blood 1.41 mg/dL (0.60-1.20); Globulin, Blood 4.4 g/dL (2.2-4.0); Potassium, Blood 3.7 mmol/L (3.5-5.5); Total Protein, Blood 6.8 g/dL (6.4-8.2)
--- NOTE | 2022-11-06 07:19 | NUR ---
PIGGYBACK CLERK SUMMARY: A&Ox4. PLEASANT AND COOPERATIVE WITH CARE. CALLS APPROPRIATELY AND IS ABLE TO COMMUNICATE NEEDS EFFECTIVELY. C/O LOOSE STOOLS BUT HAS NOT NOTED ANY BLOOD IN STOOL. LABS THIS AM; NO CRITICAL VALUES REPORTED. NO C/O PAIN. DID SUFFER WOUND TO RIGHT FIFTH TOE DURING TRANSPORT FROM ED TO MED FLOOR AT SOME POINT. WOUND CARE PROVIDED. NEED PICTURES. TELE SINUS. REPORT TO ONCOMIN GRN.
--- NOTE | 2022-11-06 08:00 | NUR ---
pt sitting up on the side of the bed visitor in room with him, he is a/ox3, pleasant and cooperative with care, follows commands well, seems pretty anxious states he hasn't been told anything yet, he just got to room in the middle of the night, explained a will see him today, lungs are dim t/o, can auscultate air movement in upper alves, but very dim in bases, could be due to body habitus, on r/a at this time, no cough noted, hrr, tele in place running sr per monitor, see strip, looks like 2+ edema to b/l legs but unable to tell if just size, iv site is clear and patent, reports no void yet this am, was told loose stools, skin has a wound to right toe with dressing in place, skin is dark on both legs, blisters to bottom of left foot, mapraveen, up indep in room, jesse, call light in reach.
[2022-11-06 11:00] LABS: International Normalized Ratio 1.14; Prothrombin Time Results 11.9 Sec (9.7-11.5)
[2022-11-06 11:03] LABS: Albumin, Blood 2.4 g/dL (3.4-5.0); Albumin/Globulin Ratio 0.5 (0.8-1.8); Bilirubin, Direct 2.3 mg/dL (0.0-0.3); Bilirubin, Total 2.9 mg/dL (0.1-1.0); Bun/Creatinine Ratio 22.2 (12.0-20.0); Calcium, Blood 8.4 mg/dL (8.5-10.1); Creatinine, Blood 0.95 mg/dL (0.60-1.20); Globulin, Blood 4.6 g/dL (2.2-4.0); Potassium, Blood 3.4 mmol/L (3.5-5.5)
--- NOTE | 2022-11-06 18:35 | NUR ---
pt states he's feeling a lot better, waiting on GI consult, called he will be here within an hr. informed pt. no further changes. call light in reach.
--- NOTE | 2022-11-07 00:17 | NUR ---
GI TO PT BESIDE. DISCUSSED PATHO W/ PT, PT'S SISTER AND PT'S SON @ BEDSIDE. VERBAL ORDER FOR VENOUS DUPEX BLEs, AM CORTISOL AND D.DIMER IN AM.
[2022-11-07 05:48] LABS: BASOPHILS ABSOLUTE AUTO 0.03 K/mm3 (0.00-0.23); BASOPHILS PERCENT AUTO 1 % (0-2); EOSINOPHILS ABSOLUTE AUTO 0.62 K/mm3 (0.00-0.68); EOSINOPHILS PERCENT AUTO 12 % (0-6); Hematocrit 36.3 % (37.0-53.0); Hemoglobin 12.6 g/dL (13.5-17.5); IMMATURE GRAN ABSOLUTE AUTO 0.03 K/mm3 (0.00-0.10); IMMATURE GRAN PERCENT AUTO 1 % (0-1); LYMPHOCYTES ABSOLUTE AUTO 1.07 K/mm3 (0.84-5.20); LYMPHOCYTES PERCENT AUTO 21 % (21-46); MONOCYTES PERCENT AUTO 6 % (4-13); Mean Corpuscular HGB 30.7 pg (26.0-34.0); Mean Corpuscular HGB Conc 34.7 g/dL (31.5-36.5); Mean Corpuscular Volume 89 fL (80-100); Mean Platelet Volume 9.5 fL (9.1-12.4); NEUTROPHILS ABSOLUTE AUTO 3.04 K/mm3 (1.96-9.15); NEUTROPHILS PERCENT AUTO 60 % (41-73); Platelet Count 319 K/mm3 (150-400); RDW Coefficient Variation 13.2 % (11.7-14.2); RDW Standard Deviation 42.7 fL (35.1-46.3); White Blood Cell Count 5.09 K/mm3 (4.00-11.30)
[2022-11-07 06:11] LABS: Albumin, Blood 2.5 g/dL (3.4-5.0); Albumin/Globulin Ratio 0.6 (0.8-1.8); Bilirubin, Total 1.2 mg/dL (0.1-1.0); Bun/Creatinine Ratio 23.9 (12.0-20.0); Calcium, Blood 8.5 mg/dL (8.5-10.1); Creatinine, Blood 0.59 mg/dL (0.60-1.20); Globulin, Blood 4.4 g/dL (2.2-4.0); Magnesium, Blood 2.4 mg/dL (1.6-2.4); Phosphorus, Blood 2.9 mg/dL (2.5-4.9); Potassium, Blood 3.7 mmol/L (3.5-5.5); Total Protein, Blood 6.9 g/dL (6.4-8.2)
--- NOTE | 2022-11-07 06:48 | NUR ---
SUPERVISOR CONTACT AND SERVICE CLERKS SUMMARY: A&Ox4. PLEASANT AND COOPERATIVE WITH CARE. CALLS APPROPRIATELY AND IS ABLE TO COMMUNICATE NEEDS EFFECTIVELY. GI TO BEDSIDE TO CONSULT; RECOMMENDED LIFESTYLE CHANGES WEIGHT LOSS, SMOKING AND MARIJUANA CESSATION, RECOMMENDING MEDICAL WEIGHT LOSS INTERVENTION. SISTER AND SON @ BEDSIDE. QUESTIONS ANSWERED BY PROVIDER AND EDUCATION AND CLARIFICATION PROVIDED TO FAMILY. PROVIDER ADDED VENOUS DUPLEX TO BLEs AND D-DIMER TO R/O PE AND AM CORTISOL TO R/O ADRENAL PATHOLOGY. NPO CANCELED PER GI AND PT MUCH HAPPIER AFTER BEING ABLE TO EAT DINNER. NO ACUTE CONCERNS T/O THE NIGHT. WILL REPORT TO ONCOMING RN.
[2022-11-07] MEDS ORDERED: LACT PO (12:27)
[2022-11-07] MEDS ORDERED: PANT40 PO (12:27)
[2022-11-07] MEDS ORDERED: AZIT250 PO (12:28)
[2022-11-07] MEDS ORDERED: AMOCLA875 PO (12:28)
[2022-11-08 02:11] LABS: HBSAG SCREEN Negative (Negative); HCV AB <0.1 (0.0-0.9); HEP A AB, IGM Negative (Negative); HEP B CORE AB, IGM Negative (Negative); HIV AB/P24 AG SCREEN Non Reactive (Non Reactive)
[2022-11-10 14:08] LABS: HCV AB <0.1 (0.0-0.9)
== END 2022-11-07 12:58 | disposition home or self-care (01) | DRG 871 ==
LOC: ER 17:48 → MEDS 22:08
PROVIDERS: Emergency Medicine; Family Medicine; Physician Assistant; Student in an Organized Health Care Education/Training Program; ADMIT Internal Medicine
DX: A41.9 Sepsis, unspecified organism (principal); J18.9 Pneumonia, unspecified organism; N17.9 Acute kidney failure, unspecified; K92.2 Gastrointestinal hemorrhage, unspecified; E87.1 Hypo-osmolality and hyponatremia; Z68.43 Body mass index [BMI] 50.0-59.9, adult; R74.8 Abnormal levels of other serum enzymes; I95.9 Hypotension, unspecified; E66.01 Morbid (severe) obesity due to excess calories; F17.210 Nicotine dependence, cigarettes, uncomplicated; E86.0 Dehydration; E80.6 Other disorders of bilirubin metabolism; K70.30 Alcoholic cirrhosis of liver without ascites; R65.20 Severe sepsis without septic shock; F10.21 Alcohol dependence, in remission; K76.0 Fatty (change of) liver, not elsewhere classified; I10 Essential (primary) hypertension; G47.33 Obstructive sleep apnea (adult) (pediatric); K75.9 Inflammatory liver disease, unspecified; F12.10 Cannabis abuse, uncomplicated; I87.2 Venous insufficiency (chronic) (peripheral); Z20.822 Contact with and (suspected) exposure to COVID-19; Z71.6 Tobacco abuse counseling; Z79.899 Other long term (current) drug therapy; Z79.811 Long term (current) use of aromatase inhibitors; Z79.01 Long term (current) use of anticoagulants
CPT/HCPCS: 0241U; 36415; 71045; 76705; 80053; 80074; 82247; 82248; 82533; 82977; 83036; 83615; 83690; 83735; 83880; 84100; 84443; 84484; 85014; 85018; 85025; 85379; 85610; 85730; 86850; 86900; 86901; 87040; 87389; 93970; 96361; 96365; 96375; 99285-25; A9270; J0696; J3411; J7030

== ENCOUNTER 2024-06-06 02:07 | Day surgery (SDC) | payer BC ==
[~2024-06-06 02:07] MED LIST changes: +AMOCLA875 PO; +AZIT250 PO; +LACT PO; +PANT40 PO
[2024-06-06] MEDS ORDERED: Lidocaine HCl 4% Cream 5 GM ONE (12:27)
== END 2024-06-06 23:00 | disposition home or self-care (01) ==
LOC: WOUND 02:07
DX: L97.413 Non-pressure chronic ulcer of right heel and midfoot with necrosis of muscle (principal); L97.522 Non-pressure chronic ulcer of other part of left foot with fat layer exposed; I73.9 Peripheral vascular disease, unspecified; I87.2 Venous insufficiency (chronic) (peripheral); F17.210 Nicotine dependence, cigarettes, uncomplicated; E66.01 Morbid (severe) obesity due to excess calories; Z68.43 Body mass index [BMI] 50.0-59.9, adult
CPT/HCPCS: A6213; A6214; A9270; G0463

== ENCOUNTER 2024-06-28 01:52 | Day surgery (SDC) | payer BC ==
[2024-06-28] MEDS ORDERED: Lidocaine HCl 4% Cream 5 GM ONE (15:03)
== END 2024-06-28 23:09 | disposition home or self-care (01) ==
LOC: WOUND 01:52
DX: L97.515 Non-pressure chronic ulcer of other part of right foot with muscle involvement without evidence of necrosis (principal); L97.512 Non-pressure chronic ulcer of other part of right foot with fat layer exposed; I73.9 Peripheral vascular disease, unspecified; I87.2 Venous insufficiency (chronic) (peripheral); F17.200 Nicotine dependence, unspecified, uncomplicated; E66.01 Morbid (severe) obesity due to excess calories
CPT/HCPCS: A6213; A6214; A9270; G0463

== ENCOUNTER 2024-07-06 04:37 | Day surgery (SDC) | payer BC | END 2024-07-06 23:38 | disposition home or self-care (01) | LOC: WOUND 04:37 | DX: L97.413 Non-pressure chronic ulcer of right heel and midfoot with necrosis of muscle (principal); L97.812 Non-pressure chronic ulcer of other part of right lower leg with fat layer exposed; I73.9 Peripheral vascular disease, unspecified; I87.2 Venous insufficiency (chronic) (peripheral); E66.01 Morbid (severe) obesity due to excess calories; F17.200 Nicotine dependence, unspecified, uncomplicated | CPT/HCPCS: A6196; A6213; A6214; G0463 ==

== ENCOUNTER 2024-07-13 02:39 | Day surgery (SDC) | payer BC | END 2024-07-13 23:38 | disposition home or self-care (01) | LOC: WOUND 02:39 | DX: L97.415 Non-pressure chronic ulcer of right heel and midfoot with muscle involvement without evidence of necrosis (principal); I73.9 Peripheral vascular disease, unspecified; I10 Essential (primary) hypertension; K74.60 Unspecified cirrhosis of liver; F17.200 Nicotine dependence, unspecified, uncomplicated; E66.01 Morbid (severe) obesity due to excess calories; Z68.43 Body mass index [BMI] 50.0-59.9, adult | CPT/HCPCS: A6214; G0463 ==

== ENCOUNTER 2024-07-27 03:52 | Day surgery (SDC) | payer BC | END 2024-07-27 23:52 | disposition home or self-care (01) | LOC: WOUND 03:52 | DX: L97.412 Non-pressure chronic ulcer of right heel and midfoot with fat layer exposed (principal); I87.2 Venous insufficiency (chronic) (peripheral); I73.9 Peripheral vascular disease, unspecified; F17.200 Nicotine dependence, unspecified, uncomplicated; E66.01 Morbid (severe) obesity due to excess calories; Z68.43 Body mass index [BMI] 50.0-59.9, adult | CPT/HCPCS: A6214 ==

== ENCOUNTER 2024-08-24 01:19 | Day surgery (SDC) | payer BC | END 2024-08-24 23:00 | disposition home or self-care (01) | LOC: WOUND 01:19 | DX: L97.412 Non-pressure chronic ulcer of right heel and midfoot with fat layer exposed (principal); I73.9 Peripheral vascular disease, unspecified; I87.2 Venous insufficiency (chronic) (peripheral); E66.01 Morbid (severe) obesity due to excess calories; F17.200 Nicotine dependence, unspecified, uncomplicated | CPT/HCPCS: A6214; G0463 ==

== ENCOUNTER 2024-09-07 03:49 | Day surgery (SDC) | payer BC | END 2024-09-07 23:00 | disposition home or self-care (01) | LOC: WOUND 03:49 | DX: L97.515 Non-pressure chronic ulcer of other part of right foot with muscle involvement without evidence of necrosis (principal); L97.512 Non-pressure chronic ulcer of other part of right foot with fat layer exposed; I73.9 Peripheral vascular disease, unspecified; I87.2 Venous insufficiency (chronic) (peripheral); F17.200 Nicotine dependence, unspecified, uncomplicated; E66.01 Morbid (severe) obesity due to excess calories; Z68.43 Body mass index [BMI] 50.0-59.9, adult | CPT/HCPCS: G0463 ==

== ENCOUNTER 2025-05-08 00:26 | Day surgery (SDC) | payer SELFPAY | END 2025-05-08 23:00 | disposition home or self-care (01) | LOC: WOUND 00:26 | DX: L97.525 Non-pressure chronic ulcer of other part of left foot with muscle involvement without evidence of necrosis (principal); L97.515 Non-pressure chronic ulcer of other part of right foot with muscle involvement without evidence of necrosis; G62.9 Polyneuropathy, unspecified; I10 Essential (primary) hypertension; I73.9 Peripheral vascular disease, unspecified; F10.10 Alcohol abuse, uncomplicated; K70.0 Alcoholic fatty liver; F17.210 Nicotine dependence, cigarettes, uncomplicated | CPT/HCPCS: A6213; A6214; A9270; G0463 ==

== ENCOUNTER 2025-05-16 01:11 | Day surgery (SDC) | payer SELFPAY ==
[2025-05-16] MEDS ORDERED: Lidocaine HCl 4% Cream 5 GM ONE (15:21)
== END 2025-05-16 23:00 | disposition home or self-care (01) ==
LOC: WOUND 01:11
DX: L97.525 Non-pressure chronic ulcer of other part of left foot with muscle involvement without evidence of necrosis (principal); L97.515 Non-pressure chronic ulcer of other part of right foot with muscle involvement without evidence of necrosis; G62.9 Polyneuropathy, unspecified; F10.10 Alcohol abuse, uncomplicated; F17.200 Nicotine dependence, unspecified, uncomplicated
CPT/HCPCS: A6213; A6214; A9270

== ENCOUNTER 2025-05-23 03:30 | Day surgery (SDC) | payer OTHER | END 2025-05-23 23:00 | disposition home or self-care (01) | LOC: WOUND 03:30 | DX: L97.525 Non-pressure chronic ulcer of other part of left foot with muscle involvement without evidence of necrosis (principal); L97.515 Non-pressure chronic ulcer of other part of right foot with muscle involvement without evidence of necrosis; G62.9 Polyneuropathy, unspecified; F17.200 Nicotine dependence, unspecified, uncomplicated; F10.11 Alcohol abuse, in remission | CPT/HCPCS: A6213; A6214 ==

== ENCOUNTER 2025-05-30 01:40 | Day surgery (SDC) | payer OTHER ==
[2025-05-30] MEDS ORDERED: Lidocaine HCl 4% Cream 5 GM ONE (15:08)
== END 2025-05-30 23:00 | disposition home or self-care (01) ==
LOC: WOUND 01:40
DX: L97.525 Non-pressure chronic ulcer of other part of left foot with muscle involvement without evidence of necrosis (principal); L97.515 Non-pressure chronic ulcer of other part of right foot with muscle involvement without evidence of necrosis; G62.9 Polyneuropathy, unspecified; F17.200 Nicotine dependence, unspecified, uncomplicated; F10.10 Alcohol abuse, uncomplicated
CPT/HCPCS: A6213; A6214; A9270

== ENCOUNTER 2025-06-06 04:38 | Day surgery (SDC) | payer OTHER ==
[2025-06-06] MEDS ORDERED: Lidocaine HCl 4% Cream 5 GM ONE (09:57)
== END 2025-06-06 23:01 | disposition home or self-care (01) ==
LOC: WOUND 04:38
DX: L97.525 Non-pressure chronic ulcer of other part of left foot with muscle involvement without evidence of necrosis (principal); L97.515 Non-pressure chronic ulcer of other part of right foot with muscle involvement without evidence of necrosis; G62.9 Polyneuropathy, unspecified; F10.10 Alcohol abuse, uncomplicated; F17.200 Nicotine dependence, unspecified, uncomplicated; I87.2 Venous insufficiency (chronic) (peripheral)
CPT/HCPCS: A6213; A6214; A9270

== ENCOUNTER 2025-06-13 02:31 | Day surgery (SDC) | payer OTHER | END 2025-06-13 23:00 | disposition home or self-care (01) | LOC: WOUND 02:31 | DX: L97.525 Non-pressure chronic ulcer of other part of left foot with muscle involvement without evidence of necrosis (principal); L97.515 Non-pressure chronic ulcer of other part of right foot with muscle involvement without evidence of necrosis; G62.9 Polyneuropathy, unspecified; I87.2 Venous insufficiency (chronic) (peripheral); F17.200 Nicotine dependence, unspecified, uncomplicated; F10.11 Alcohol abuse, in remission | CPT/HCPCS: A6213; A6214; G0463 ==

== ENCOUNTER 2025-06-30 10:34 | Day surgery (SDC) | payer OTHER ==
[~2025-06-30 10:34] MED LIST changes: +Lidocaine HCl 4% Cream 5 GM ONE
== END 2025-06-30 23:00 | disposition home or self-care (01) ==
LOC: WOUND 10:34
DX: L97.525 Non-pressure chronic ulcer of other part of left foot with muscle involvement without evidence of necrosis (principal); L97.515 Non-pressure chronic ulcer of other part of right foot with muscle involvement without evidence of necrosis; G62.9 Polyneuropathy, unspecified; F10.10 Alcohol abuse, uncomplicated; F17.200 Nicotine dependence, unspecified, uncomplicated
CPT/HCPCS: A6213; A6214; A9270

== ENCOUNTER 2025-07-21 00:13 | Day surgery (SDC) | payer OTHER ==
[~2025-07-21 00:13] MED LIST changes: -Lidocaine HCl 4% Cream 5 GM ONE
[2025-07-21] MEDS ORDERED: Lidocaine HCl 4% Cream 5 GM ONE (10:04)
== END 2025-07-21 23:00 | disposition home or self-care (01) ==
LOC: WOUND 00:13
DX: L97.525 Non-pressure chronic ulcer of other part of left foot with muscle involvement without evidence of necrosis (principal); L97.515 Non-pressure chronic ulcer of other part of right foot with muscle involvement without evidence of necrosis; G62.9 Polyneuropathy, unspecified; F10.10 Alcohol abuse, uncomplicated; F17.200 Nicotine dependence, unspecified, uncomplicated; I87.2 Venous insufficiency (chronic) (peripheral)
CPT/HCPCS: A6196; A6213; A6214; A9270; G0463

== ENCOUNTER 2025-08-04 00:32 | Day surgery (SDC) | payer OTHER | END 2025-08-04 23:00 | disposition home or self-care (01) | LOC: WOUND 00:32 | DX: L97.525 Non-pressure chronic ulcer of other part of left foot with muscle involvement without evidence of necrosis (principal); L97.515 Non-pressure chronic ulcer of other part of right foot with muscle involvement without evidence of necrosis; G62.9 Polyneuropathy, unspecified; I10 Essential (primary) hypertension; I73.9 Peripheral vascular disease, unspecified | CPT/HCPCS: A6196; A6213; A6214 ==

== ENCOUNTER 2025-08-11 02:39 | Day surgery (SDC) | payer OTHER | END 2025-08-11 23:00 | disposition home or self-care (01) | LOC: WOUND 02:39 | DX: L97.525 Non-pressure chronic ulcer of other part of left foot with muscle involvement without evidence of necrosis (principal); L97.515 Non-pressure chronic ulcer of other part of right foot with muscle involvement without evidence of necrosis; G62.9 Polyneuropathy, unspecified; F10.10 Alcohol abuse, uncomplicated; F17.200 Nicotine dependence, unspecified, uncomplicated; I87.2 Venous insufficiency (chronic) (peripheral) | CPT/HCPCS: A6196; A6213; A6214; G0463 ==

== ENCOUNTER 2025-09-01 02:38 | Day surgery (SDC) | payer OTHER | END 2025-09-01 23:00 | disposition home or self-care (01) | LOC: WOUND 02:38 | DX: L97.512 Non-pressure chronic ulcer of other part of right foot with fat layer exposed (principal); L97.515 Non-pressure chronic ulcer of other part of right foot with muscle involvement without evidence of necrosis; L97.525 Non-pressure chronic ulcer of other part of left foot with muscle involvement without evidence of necrosis; L97.412 Non-pressure chronic ulcer of right heel and midfoot with fat layer exposed; G62.9 Polyneuropathy, unspecified; F17.200 Nicotine dependence, unspecified, uncomplicated; F10.11 Alcohol abuse, in remission | CPT/HCPCS: A6196; A6213; A6214 ==

== ENCOUNTER 2025-09-08 14:45 | Emergency (ER) | payer OTHER ==
[~2025-09-08] VITALS: Ht 193 cm; Wt 204.1 kg
[2025-09-08] MEDS ORDERED: albuterol sulfate HF (15:07)
[2025-09-08] MEDS ORDERED: LISINOPRIL-HCT1 EACH PO (15:21)
[2025-09-08] MEDS ORDERED: Albuterol 2.5 MG/3 ML VIAL INH SCH (15:25)
[2025-09-08 15:37] LABS: BASOPHILS ABSOLUTE AUTO 0.05 K/mm3 (0.00-0.23); BASOPHILS PERCENT AUTO 1 % (0-2); EOSINOPHILS ABSOLUTE AUTO 0.09 K/mm3 (0.00-0.68); EOSINOPHILS PERCENT AUTO 1 % (0-6); Hematocrit 29.9 % (37.0-53.0); Hemoglobin 10.7 g/dL (13.5-17.5); IMMATURE GRAN ABSOLUTE AUTO 0.06 K/mm3 (0.00-0.10); IMMATURE GRAN PERCENT AUTO 1 % (0-1); LYMPHOCYTES ABSOLUTE AUTO 1.14 K/mm3 (0.84-5.20); LYMPHOCYTES PERCENT AUTO 15 % (21-46); MONOCYTES ABSOLUTE AUTO 0.59 K/mm3 (0.16-1.47); MONOCYTES PERCENT AUTO 8 % (4-13); Mean Corpuscular HGB Conc 35.8 g/dL (31.5-36.5); Mean Corpuscular Volume 89 fL (80-100); NEUTROPHILS ABSOLUTE AUTO 5.76 K/mm3 (1.96-9.15); NEUTROPHILS PERCENT AUTO 75 % (41-73); NRBC ABSOLUTE 0.00 K/mm3 (0.00-0.02); NRBC Auto 0.0 /100 WBC (0.0-0.2); Platelet Count 301 K/mm3 (150-400); RDW Coefficient Variation 14.9 % (11.7-14.2); RDW Standard Deviation 47.4 fL (35.1-46.3)
[2025-09-08 15:48] LABS: Alanine Aminotransfer (ALT/SGP 21.0 U/L (12-78); Albumin, Blood 3.5 g/dL (3.4-5.0); Albumin/Globulin Ratio 0.8 (0.8-1.8); Anion Gap 11.0 mmol/L (3-11); Aspartate Aminotrans (AST/SGOT 19.0 U/L (12-37); Bilirubin, Total 0.8 mg/dL (0.1-1.0); Blood Urea Nitrogen 14.0 mg/dL (8-24); CO2, Blood 25.0 mmol/L (21-32); Calcium, Blood 9.7 mg/dL (8.5-10.1); Chloride, Blood 93.0 mmol/L (98-108); Creatinine, Blood 1.45 mg/dL (0.60-1.20); Globulin, Blood 4.5 g/dL (2.2-4.0); Glucose, Blood 118.0 mg/dL (70-99); Potassium, Blood 3.9 mmol/L (3.5-5.5); Sodium, Blood 125.0 mmol/L (136-145); Total Protein, Blood 8.0 g/dL (6.4-8.2)
[2025-09-08 16:23] LABS: Influenza A, PCR NEGATIVE (NEGATIVE); Influenza B, PCR NEGATIVE (NEGATIVE); Resp Syncytial Virus, PCR NEGATIVE (NEGATIVE); SARS-Cov-2 (COVID-19) PCR, MMC NEGATIVE (NEGATIVE)
[2025-09-08 16:30] VITALS: BP 131/58
== END 2025-09-08 16:45 | disposition home or self-care (01) ==
LOC: ER 14:45
PROVIDERS: Emergency Medicine
DX: J98.01 Acute bronchospasm (principal); F17.200 Nicotine dependence, unspecified, uncomplicated; Z79.899 Other long term (current) drug therapy
CPT/HCPCS: 71046; 80053; 83880; 84484; 85025; 85379; 87637; 93005; 93010; 96374; 99285-25; J2919